=== PATIENT | male | born 1960 | race Caucasian/White ===

== ENCOUNTER 2020-10-05 08:15 | Inpatient (IN) | payer OTHER ==
[~2020-10-05] VITALS: Ht 188 cm; Wt 107.2 kg
[~2020-10-05 08:15] MED LIST: ALPR1 PO; CEPH500 PO; DIPATR PO; HYDACE5 PO; Norco 5-325 Ta1 EACH PO; PROM25 PO; QUET200 PO
[2020-10-05 08:30] LABS: Calcium, Ionized (POC) 1.23 mmol/L (1.10-1.46); Chloride (POC) 104 mmol/L (98-108); Creatinine (POC) 1.6 mg/dL (0.8-1.3); Glucose (ISTAT POC) 233 mg/dL (70-99); Hemoglobin (POC) 14.3 g/dL (13.5-17.5); Potassium (POC) 3.9 mmol/L (3.5-5.5); Sodium (POC) 136 mmol/L (135-148); Total CO2 (POC) 20 mmol/L (21-32)
[2020-10-05 08:34] LABS: PCO2 Arterial 46.2 mmHg (35-45); PO2 Arterial 361 mmHg (80-100)
[2020-10-05 08:35] LABS: pH Blood Arterial 7.09 (7.35-7.45)
[2020-10-05 08:37] LABS: BASOPHILS ABSOLUTE AUTO 0.08 K/mm3 (0.00-0.23); BASOPHILS PERCENT AUTO 1 % (0-2); EOSINOPHILS ABSOLUTE AUTO 0.19 K/mm3 (0.00-0.68); EOSINOPHILS PERCENT AUTO 2 % (0-6); Hemoglobin 13.4 g/dL (13.5-17.5); IMMATURE GRAN ABSOLUTE AUTO 0.57 K/mm3 (0.00-0.10); IMMATURE GRAN PERCENT AUTO 5 % (0-1); LYMPHOCYTES ABSOLUTE AUTO 4.37 K/mm3 (0.84-5.20); LYMPHOCYTES PERCENT AUTO 37 % (21-46); MONOCYTES ABSOLUTE AUTO 1.22 K/mm3 (0.16-1.47); MONOCYTES PERCENT AUTO 10 % (4-13); Mean Corpuscular HGB 31.2 pg (26.0-34.0); Mean Corpuscular HGB Conc 31.9 g/dL (31.5-36.5); Mean Corpuscular Volume 98 fL (80-100); Mean Platelet Volume 9.1 fL (9.1-12.4); NEUTROPHILS ABSOLUTE AUTO 5.39 K/mm3 (1.96-9.15); NEUTROPHILS PERCENT AUTO 46 % (41-73); NRBC ABSOLUTE 0.05 K/mm3 (0.00-0.02); NRBC Auto 0.4 /100 WBC (0.0-0.2); Platelet Count 253 K/mm3 (150-400); RDW Coefficient Variation 13.7 % (11.7-14.2); RDW Standard Deviation 49.6 fL (35.1-46.3); Red Blood Cell Count 4.29 M/mm3 (4.30-5.90); White Blood Cell Count 11.82 K/mm3 (4.00-11.30)
[2020-10-05 08:52] LABS: International Normalized Ratio 1.07; Prothrombin Time Results 11.5 Sec (9.7-11.5)
[2020-10-05 08:56] LABS: Source, Urine Clean Catch
[2020-10-05 09:03] LABS: Alanine Aminotransfer (ALT/SGP 57 U/L (12-78); Albumin, Blood 2.9 g/dL (3.4-5.0); Albumin/Globulin Ratio 0.7 (0.8-1.8); Alk Phos 93 U/L (50-136); Anion Gap 14 mmol/L (6-16); Aspartate Aminotrans (AST/SGOT 61 U/L (12-37); Bilirubin, Total 0.4 mg/dL (0.1-1.0); Blood Urea Nitrogen 8 mg/dL (8-24); Bun/Creatinine Ratio 5.6 (12.0-20.0); CO2, Blood 19 mmol/L (21-32); Calcium, Blood 8.3 mg/dL (8.5-10.1); Chloride, Blood 103 mmol/L (98-108); Creatinine, Blood 1.42 mg/dL (0.60-1.20); Globulin, Blood 4.4 g/dL (2.2-4.0); Glomerular Filtration Rate 54 (60-); Glucose, Blood 249 mg/dL (70-99); Potassium, Blood 3.8 mmol/L (3.5-5.5); Sodium, Blood 136 mmol/L (136-145); Total Protein, Blood 7.3 g/dL (6.4-8.2); Troponin I <0.015 ng/mL (0.000-0.040)
[2020-10-05 09:04] LABS: Appearance, Urine Cloudy (Clear); Bilirubin, Urine Neg (Neg); Blood, Urine 3+ (Neg); Color, Urine Yellow (P-Yellow); Glucose Qualitative, Urine 2+ (Neg); Ketones, Urine Neg (Neg); Leukocyte Esterase, Urine 1+ (Neg); Nitrite, Urine Neg (Neg); Protein, Urine 3+ (Neg); Urobilinogen, Urine NORM (Normal)
[2020-10-05 09:18] LABS: Spermatozoa Many /hpf
[2020-10-05 09:25] LABS: Bacteria Mod /hpf; Mucus Mod (0-Heavy); Renal Epithelial Few /hpf (0-Rare); Squamous Epithelial Cells Few /hpf (Few)
[2020-10-05 09:26] LABS: U Amphetamine Screen Not Detected; U Barbituate Screen Not Detected; U Benzodiazapine Screen DETECTED; U Buprenorphine Screen Not Detected; U Cannabinoids Screen DETECTED; U Cocaine Screen Not Detected; U Methadone Screen Not Detected; U Methamphetamine Screen Not Detected; U Opiates Screen Not Detected; U Oxycodone Screen Not Detected; U Phencyclidine Screen Not Detected; U Propoxyphene Screen Not Detected
[2020-10-05 10:38] LABS: PCO2 Arterial 39.2 mmHg (35-45); PO2 Arterial 80.3 mmHg (80-100); pH Blood Arterial 7.33 (7.35-7.45)
--- NOTE | 2020-10-05 11:30 | NUR ---
Received report from associate professor of management. Patient arrieved via gurney intubated with 8.0 ET and 26 at gums with vent settings 24/450/40/5 95%. He was a slide transfer and hooked up to monitor. He has tremmors, posturing and mild seizure looking activity. Medicated with Ativan and Fentanyl. No restraints as he shows no movement activity. Mother in ICU waiting room. He has IV to left wrist and IO to righ knee area. left wrist has Propofol at 20 mcg/kg/min.
--- NOTE | 2020-10-05 13:30 | NUR ---
Patient is now on spon. mode 14/5 and sats >90%. Dr Kenny palced cooling cath and am cooling to 96 degrees Mother in room and spoke with Dr Kenny. Started on Keppra for possible seizures and Nimbex for cooling and increased to 2.5 mcg/kg/min and BIS 50's, Propofol increased to 40 mcg/kg/min, Keppra infused.
--- NOTE | 2020-10-05 14:30 | NUR ---
Initial Pal Care referral received on pt's admission to ICU. RN let me know when mom was at the bedside and visit made to mom-Hermelinda. She is pt's NOK and surrogate decision maker in the absence of any AD. Her # is [phone]. Pt's sister, Karie Roa [phone] also lives locally and is close to her brother (13 months younger) per their mom. I introduced my self to mom and explained my purpose of supportive visit and to help answer questions for family as time goes on. She verbalizes understanding of plan of care to give pt some time, approx 24 hrs to reassess neuro/cognitive & cardiac function. Pt admitted with dx of cardiopulmonary arrest & acute renal failure. He was found down in the garage at home by Mom, Hermelinda, early this am. She does not know how long he was down. EMS called & resuscitation effort resulted in ROSC eventually, pt intubated in the ER. Cooling measures initiated. Pt is encephalopathic, posturing, pinpoint pupils & upward gaze per rippler's assessment earlier today. Pt has a PMH of HTN, preDM, new dx of hep C, 2PPD smoker, 6PPday drinker, anxiety increased recently with new dx of hep C per mom. Echo done today with EF of 40% noted. Time spent listening to mom and supporting her in her life review/son's life review. [employer] Developer had also visited mom earlier today and RN requested [employer] Developer Maco visit too. Mom is appropriately tearful. She states her son is a "good son" who has been helpful to her in the time he has been living in her home. Mom asked about what would happen after "wait and see" period and if additional family could visit. I told her staff and drs would keep her updated and if they felt a family conference would be helpful she would be able to have additional family present to listen, help and support her with decision making. Told her Pal Care will check in regularly. She declined offer for warm blanket in cool room or any beverages/snacks at this time. Encouraged hydration, rest, self care for mom who is understandable under duress and tearful. She expressed appreciation for visit.
[2020-10-05 16:46] LABS: Base Excess Venous -4.7 mmol/L; Bicarbonate Venous 21.2 mmol/L (24.0-30.0); PCO2 Venous 33.6 mmHg (38-42); PO2 Venous 79.3 mmHg (38-42); pH Blood Venous 7.39 (7.34-7.37)
[2020-10-05 17:03] LABS: Anion Gap 10 mmol/L (6-16); Blood Urea Nitrogen 11 mg/dL (8-24); Bun/Creatinine Ratio 10.7 (12.0-20.0); CO2, Blood 20 mmol/L (21-32); Calcium, Blood 8.1 mg/dL (8.5-10.1); Chloride, Blood 104 mmol/L (98-108); Creatinine, Blood 1.03 mg/dL (0.60-1.20); Glomerular Filtration Rate >60 (60-); Glucose, Blood 170 mg/dL (70-99); Potassium, Blood 4.4 mmol/L (3.5-5.5); Sodium, Blood 134 mmol/L (136-145)
--- NOTE | 2020-10-05 20:00 | NUR ---
ASSUMED CARE OF PT AT 1915. REPORT RECEIVED AT BEDSIDE. PT PRESENTS IN BED VENTED. PT ON PRECEDEX AT 1 MCG/KG AND PROPOFOL AT 35 MCG'S. PT MAINTAINS TRAIN OF FOUR. WITH NIMBEX AND BIS MONITOR REMAINS FOR THE MOST PART 40-60. WILL CONTINUE TO MONITOR. WILL REVIEW CHART AND PLAN OF CARE FOR THIS PT.
[2020-10-06 05:22] LABS: BASOPHILS ABSOLUTE AUTO 0.01 K/mm3 (0.00-0.23); BASOPHILS PERCENT AUTO 0 % (0-2); EOSINOPHILS ABSOLUTE AUTO 0.02 K/mm3 (0.00-0.68); EOSINOPHILS PERCENT AUTO 0 % (0-6); Hematocrit 38.8 % (37.0-53.0); Hemoglobin 12.8 g/dL (13.5-17.5); IMMATURE GRAN ABSOLUTE AUTO 0.05 K/mm3 (0.00-0.10); IMMATURE GRAN PERCENT AUTO 0 % (0-1); LYMPHOCYTES ABSOLUTE AUTO 1.01 K/mm3 (0.84-5.20); LYMPHOCYTES PERCENT AUTO 9 % (21-46); MONOCYTES ABSOLUTE AUTO 0.89 K/mm3 (0.16-1.47); MONOCYTES PERCENT AUTO 8 % (4-13); Mean Corpuscular HGB 30.2 pg (26.0-34.0); Mean Platelet Volume 8.8 fL (9.1-12.4); NEUTROPHILS ABSOLUTE AUTO 9.19 K/mm3 (1.96-9.15); NEUTROPHILS PERCENT AUTO 82 % (41-73); Platelet Count 183 K/mm3 (150-400); RDW Coefficient Variation 13.3 % (11.7-14.2); RDW Standard Deviation 44.7 fL (35.1-46.3); Red Blood Cell Count 4.24 M/mm3 (4.30-5.90); White Blood Cell Count 11.17 K/mm3 (4.00-11.30)
[2020-10-06 05:40] LABS: Mean Corpuscular Volume 92 fL (80-100)
[2020-10-06 05:46] LABS: Alanine Aminotransfer (ALT/SGP 51 U/L (12-78); Albumin, Blood 2.6 g/dL (3.4-5.0); Albumin/Globulin Ratio 0.6 (0.8-1.8); Alk Phos 73 U/L (50-136); Anion Gap 7 mmol/L (6-16); Aspartate Aminotrans (AST/SGOT 65 U/L (12-37); Bilirubin, Total 0.7 mg/dL (0.1-1.0); Blood Urea Nitrogen 9 mg/dL (8-24); Bun/Creatinine Ratio 9.9 (12.0-20.0); CO2, Blood 21 mmol/L (21-32); Calcium, Blood 7.5 mg/dL (8.5-10.1); Chloride, Blood 106 mmol/L (98-108); Creatinine, Blood 0.91 mg/dL (0.60-1.20); Globulin, Blood 4.1 g/dL (2.2-4.0); Glomerular Filtration Rate >60 (60-); Glucose, Blood 113 mg/dL (70-99); Potassium, Blood 4.2 mmol/L (3.5-5.5); Sodium, Blood 134 mmol/L (136-145); Total Protein, Blood 6.7 g/dL (6.4-8.2)
--- NOTE | 2020-10-06 06:23 | NUR ---
PT CURRENTLY WITH NIMBEX DRIP AT 1.0 MCG/KG/MIN. PROPOFOL AT 50 MCG'S/KG/MIN THIS MAINTAINS BIS AT OR NEAR 60. GOAL BEING 40-60. PT CONTINUES WITH VERY COARSE LUNG SOUNDS. HAVE SUTIONED PT WITH RETURN OF YELLOW/BORGES COLORED SECRETIONS. CONTINUES IN NORMAL SINUS RHYTHM. NO ECTOPY TO NOTE. NO ST CHANGES. COOLING MEASURES CONTINUE. GOAL 96.0 F. WILL CONTINUE TO MONITOR PT, AND WILL REPORT OFF TO ONCOMING RN.
--- NOTE | 2020-10-06 07:12 | NUR ---
Received report from Victoriano IBANEZ. Patient intubated, sedated and paralyzed. He has 8.0 ET and 26 cm at cums, vent setting AC 24, TV 400, FiO2 25%, PEEP 5.0 sats 98%. BIS 63, TO4 4/3 dial 7. He has Right groin cooling cath target temp 96 and is infusing Propofol 50 mcg/kg/min, Nimbex 1 mcg/kg/minm NS at 100 ml/hr. He has 16Fr Temp tomas draing light chayito urine.
--- NOTE | 2020-10-06 09:30 | NUR ---
Placed lift sheet and lifted patient zero bed and re-weighed patient. No changes to gtt's or vent settings. Sister called and gave update.
--- NOTE | 2020-10-06 12:00 | NUR ---
Patients Nimbex off at 1100 and warming started at 1130. When Nimbex wore off he started to have seizure looking tremors and possible posturing to extremities. Dr Kenny had me give Ativan 4mg three times and reduces movements. at 1145 started Versed gtt at 10mg/hr and titrate to effect. He still has leg movement twiting in and eye have minmal fluttering.
[2020-10-06 12:05] LABS: International Normalized Ratio 1.05; Prothrombin Time Results 11.3 Sec (9.7-11.5)
--- NOTE | 2020-10-06 12:07 | NUR ---
ADMIT: 10/05/20 DX: Cardiac Arrest CC: Lino Ricardo RESIDENCE: Home with mother - [address] [place]. [id number] CAREGIVER: Mother Karie Rader , sister Karie Roa Update 10/06/20: Cardiology involved in patient's care. Following notes within chart and will continue to discuss patient's care with Dr. Soto daily. Will speak with family as needed.
--- NOTE | 2020-10-06 14:00 | NUR ---
monogram technician here setting up for stat EEG. Versed gtt remains at 10 mg/hr and Propofol at 50 mcg/kg/min. He current continues with fine movements with seizure like activity. Pupils reactive to light. No purposeful movement since Nimbex turned off
--- NOTE | 2020-10-06 16:10 | NUR ---
EEG is done and Dr Jordan called with report and notified Dr Kenny. Increased versed gtt to 12 mg/hr for continued visual activity. Vent settings PC /10/09 and sats 100%. Cpoius amouts of oral secretions with constant suctioning. Propofol at 50 mcg/kg/min, NS at 100 ml/hr.
--- NOTE | 2020-10-06 18:31 | NUR ---
Family will be in after 1000 to say there good byes. Head CT in am. He is on 50 mcg/kg/min Propofol, Versed 12 mg/hr and NS at 100 ml/hr. VSS See EMR. Urine dark brown with sediment. Copius amounts of oral secretions with blood clots.
--- NOTE | 2020-10-06 18:55 | NUR ---
pt on vent family is having a meeting on withdrawing care. pt mother is sobbing she is very distrught. She had many questions on how to manage his affairs if he passes away. gave her some inormation and will assist her with a plan.
--- NOTE | 2020-10-06 20:00 | NUR ---
ASSUMED CARE OF PT AT 1915. REPORT RECEIVED AT BEDSIDE. PT PRESENTS IN BED. VENTED. PC-AC 24, 35 PERCENT FIO2, PEEP 5. PROPOFOL AT 50 MCG/KG/MIN AND VESED DRIP AT 12 MG PER HOUR. DOES HAVE TREMOR TYPE MOVEMENTS. UNRESPONSIVE. WILL REVIEW CHART AND PLAN OF CARE FOR THIS PT.
--- NOTE | 2020-10-07 00:18 | NUR ---
PHONE CALL RECEIVED FROM DONOR TEAM. UPDATE GIVEN. THEY WILL CHECK BACK IN AM. OF NOTE: PT HAD IO IV IN RIGHT LOWER EXTREMITY THAT WAS REMOVED BY THIS RN IN RENTAL MANAGEMENT TRAINEE. MILD BLEEDING NOTED. BANDAGE APPLIED. PT TOLERATES WELL. PT CONTINUES TO HAVE TREMOR - LIKE MOVEMENTS. COOLING MEASURE WITH 98.6 DEGREE CONSTANT. WILL CONTINUE TO MONITOR PT.
[2020-10-07 04:25] LABS: Base Excess Venous -2.4 mmol/L; Bicarbonate Venous 22.7 mmol/L (24.0-30.0); PCO2 Venous 32.6 mmHg (38-42); PO2 Venous 48.1 mmHg (38-42); pH Blood Venous 7.43 (7.34-7.37)
[2020-10-07 04:34] LABS: BASOPHILS ABSOLUTE AUTO 0.02 K/mm3 (0.00-0.23); BASOPHILS PERCENT AUTO 0 % (0-2); EOSINOPHILS ABSOLUTE AUTO 0.08 K/mm3 (0.00-0.68); EOSINOPHILS PERCENT AUTO 1 % (0-6); Hemoglobin 11.4 g/dL (13.5-17.5); IMMATURE GRAN ABSOLUTE AUTO 0.07 K/mm3 (0.00-0.10); IMMATURE GRAN PERCENT AUTO 1 % (0-1); LYMPHOCYTES ABSOLUTE AUTO 1.16 K/mm3 (0.84-5.20); LYMPHOCYTES PERCENT AUTO 11 % (21-46); MONOCYTES ABSOLUTE AUTO 0.91 K/mm3 (0.16-1.47); MONOCYTES PERCENT AUTO 8 % (4-13); Mean Corpuscular HGB 30.6 pg (26.0-34.0); Mean Corpuscular HGB Conc 33.5 g/dL (31.5-36.5); Mean Corpuscular Volume 91 fL (80-100); NEUTROPHILS ABSOLUTE AUTO 8.81 K/mm3 (1.96-9.15); NEUTROPHILS PERCENT AUTO 80 % (41-73); Platelet Count 187 K/mm3 (150-400); RDW Standard Deviation 47.6 fL (35.1-46.3); Red Blood Cell Count 3.73 M/mm3 (4.30-5.90); White Blood Cell Count 11.05 K/mm3 (4.00-11.30)
[2020-10-07 04:53] LABS: Anion Gap 7 mmol/L (6-16); Blood Urea Nitrogen 8 mg/dL (8-24); Bun/Creatinine Ratio 11.2 (12.0-20.0); CO2, Blood 21 mmol/L (21-32); Calcium, Blood 7.4 mg/dL (8.5-10.1); Chloride, Blood 109 mmol/L (98-108); Creatinine, Blood 0.72 mg/dL (0.60-1.20); Glomerular Filtration Rate >60 (60-); Glucose, Blood 103 mg/dL (70-99); Sodium, Blood 137 mmol/L (136-145)
--- NOTE | 2020-10-07 06:17 | NUR ---
PT CONTINUES ON VERSED DRIP AT 12 MG/HOUR, PROPOFOL AT 50 MCG'S/KG/HOUR. NO CHANGES IN NEURO STATUS. DOES HAVE PUPIL THAT ARE REACTIVE TO LIGHT. TWITCH/TREMOR LIKE MOVEMENTS REMAIN. HAS HAD COPIOUS ORAL SECRETIONS THIS NIGHT. DOES HAVE SOME BLOOD TINGED SECRETIONS WITH DEEP ORAL SUCTIONING. WILL CONTINUE TO MONITOR PT, AND WILL REPORT OFF TO ONCOMING RN.
--- NOTE | 2020-10-07 07:30 | NUR ---
ASSUMED CARE FROM MARCELLE BOWLES. PT ON VENTILATOR PC //%. PT OCC BREATHES OVER VENTILATOR, AMANUEL, PT DROOLING, COUGH OCC, ABDOMEN SOFT, HYPOACTIVE BOWEL TONES, DARBY TO GRAVITY DRAINAGE WITH SCANT RETURN, RIGHT GROIN SITE WITH COOLING MACHINE AT NORMOTEMP. RIGHT FOOT COOL, LEFT FOOT WARM, PULSES PALPAPLE, RIGHT FOOT PULSES BY DOPPLAR. HEPARIN INFUSING AT 13U/HR, MIDAZOLAM @ 12MG/HR, PROPOFOL @ 50MCG/KG/HR, NS @ 100ML/HR. PT WITH NO RESPONSES TO TOUCH, PAINFUL STIMULI OR VERBAL. PT WITH OCC EYE TWITCH. NO OTHER RESPONSES.
--- NOTE | 2020-10-07 09:45 | NUR ---
FAMILY IN TO SEE PT MOM, SISTER AND NIECE.
--- NOTE | 2020-10-07 11:00 | NUR ---
TO CT SCAN, PT TOLERATED OK, SATS DROPPED, PROPOFOL INCREASED FOR PAROXYSMAL BREATHING. PT SETTLED AND RETURNED TO PREVIOUS SETTINGS.
--- NOTE | 2020-10-07 11:30 | NUR ---
CHILDREN IN TO SEE PT. NO QUESTIONS ASKED. PT CONTINUES, NO CHANGES.
--- NOTE | 2020-10-07 13:15 | NUR ---
HEPARIN GTT INCREASED PER PHARMACY. PT CONTINUES WITH DROOLING, EVEN RESPIRATIONS, NO RESPONSES TO STIMULI. FAMILY HAS BEEN FILTERING IN AND OUT, MOTHER SPOKE WITH ABOUT CURRENT SITUATION. MOTHER SHARES THAT FAMILY WILL PROBABLY ALL BE IN AGREEMENT TO LET HIM GO, THAT HE WOULD NOT LIKE TO BE LIKE THIS. PALLIATIVE CARE AND PASTORAL CARE HAVE BEEN MEETING WITH FAMILY.
--- NOTE | 2020-10-07 13:30 | NUR ---
SUMMARY-PT'S RIGHT GROIN SITE DRESSING NEEDING CHANGED. WHILE CLEANING THE SITE TO REPLACE THE DRESSING PT BEGAN URINATING AROUND THE DARBY CATHETER. COPIOUS AMOUNTS OF CLEAR YELLOW URINE. ATTEMPT TO IRRIGATE CATHETER UNSUCCESSFUL, CATH REPLACED, DRESSING CHANGED, PT TURNED AND CLEANED. THEN NOTED TO HAVE FRENCH BLEEDING FROM THE CATHETER. NOTIFIED. HEPARIN TURNED OFF, NOTIFIED, HEPARIN DC'D. CONTINUE TO IRRIGATE THE CATHETER LINE TO KEEP IT FLOWING.
--- NOTE | 2020-10-07 13:53 | NUR ---
Spiritual care visit conducted. Patient's family are gathered around patient and they share about the struggles dealing with the suddenness and complexity of patient's medical issues and how that is effecting them emotionally. They also talk about patient's [employer] harrison and that he has been baptized. I provide therapeutic listening and prayer. I also meet with patient's son, Francisco and he talks about what a strong man and influence he has been. I provide a calming presence as he stands quietly at patient's side. Spiritual care will remain available.
--- NOTE | 2020-10-07 15:28 | NUR ---
plan i sto caontact fianl dischareg and extubate and comfort
[2020-10-07] MEDS ORDERED: ALPR1 PO (15:46)
[2020-10-07] MEDS ORDERED: LIPITOR 40 MG PO (15:47)
[2020-10-07] MEDS ORDERED: ZESTRIL40 M1 PO (15:48)
[2020-10-07] MEDS ORDERED: QUET200 PO (15:49)
--- NOTE | 2020-10-07 16:04 | NUR ---
PT.SUMMARY 1500: PT'S FAMILY DECIDED TO WITHDRAW CARE, MOTHER STATED THAT HER LAST CONVERSATION WITH HER SON, HE STATED THAT HE DID NOT WANT TO BE AN ORGAN DONOR. PT IS A REGISTERED ORGAN DONOR, LISA MONTELONGO,AUTO REPAIR SHOP MANAGER NURSE, SPOKE WITH PNTB TO DISCUSS CARE, THEY SAID TO GO AHEAD. ORDERS RECEIVED FROM DR. WEAVER, PT'S MIDAZOLAM DRIP INCREASED TO 15MG/HR, PROPOFOL DECREASED TO 30MG/KG/MIN. TERENCE FROM R/T WITHDREW ETT AND OG TUBE AT 1536, 1538 ATIVAN 1MG GIVEN. 1544-ROXINOL GIVEN, 1545 FAMILY IN TO ROOM. 1555-MORPHINE 4MG IV FOR BREATHING/COMFORT.
--- NOTE | 2020-10-07 16:06 | NUR ---
care with drawn and pt put on comfort family at bedside.
--- NOTE | 2020-10-07 17:07 | NUR ---
Update 10/07/20 1704: Pt. extubated to comfort care. Pt. will donate organs. Palliative care is involved in providing support for the family. Will update chart as indicated. Update 10/07/20: Rewarmed yesterday and had EEG which was concerning for severe diffuse cerebralinsult, consistent with persistent vegetative state. Utilities Operator team andpalliative discussed findings and poor prognosis with family. They areconsidering withdrawing care and pursuing organ donation. Nursing reportsexcessive secretions today, little to no urine output
--- NOTE | 2020-10-07 18:41 | NUR ---
PT CONTINUES WITH SONOROUS RESPIRATIONS, GURGLING AT TIMES, PT'S MOM, BROTHER AND NIECE IN THE ROOM. PT IS SPOT CHECKED AND SATS ARE HOVERING AROUND 80, HIS DARBY CONTINUES TO DRAIN RED TINGED. MIDAZOLAM GTT CONTINUES AT 15MG/HR. MEDICATED WITH MORPHINE AND ROXINOL DIRECTED. PT TURNED TO LEFT SIDE AND POSITIONED WITH PILLOWS.
--- NOTE | 2020-10-07 19:44 | NUR ---
ASSUMED CARE OF PT AT 1915. PT CURRENTLY CARE AND COMFORT STATUS. FAMILY AT BEDSIDE. HAVE MEDICATED PT WITH 20MG ROXANOL FOR COMFORT. TEACHING DONE WITH FAMILY ON PLAN OF CARE FOR PT. WILL REVIEW CHART AND PLAN OF CARE FOR PT.
--- NOTE | 2020-10-07 22:43 | NUR ---
COMFORT: PATIENT IS DISPLAYING AIR HUNGER. RESPIRATIONS ARE 22. 20 MG OF ROXANOL IS GIVEN.
--- NOTE | 2020-10-08 00:03 | NUR ---
COMFORT CARE: PATIENT CONTINUES TO HAVE HIGH RESPIRATORY RATE, 25. ATIVAN 2MG IS GIVEN FOR AIR HUNGER/DYSPNEA AND TYLENOL SUPP IS GIVEN FOR TEMP. DARBY IS DRAINING FRENCH BLOOD.
--- NOTE | 2020-10-08 00:25 | NUR ---
COMFORT: PATIENT CONTIUES TO DISPLAY AIR HUNGER. RESPIRATIONS ARE 24. ROXANOL IS GIVEN. SKIN IS COOLER AFTER TYLENOL SUPP.
--- NOTE | 2020-10-08 01:29 | NUR ---
COMFORT: PATIENT HAS HAD GOOD EFFECT FROM ROXANOL, RESPIRATIONS ARE AT 20AND EASY. FAMILY IS AT BEDSIDE.
--- NOTE | 2020-10-08 02:33 | NUR ---
/COMFORT: DARBY IS NOT DRAINING, FRENCH BLOOD IS IN THE TUBBING AND BAG. FLUSHING OF CATH IS ATTEMPTED BUT UNSUCCESSFUL. CATH CARE IS DONE, BALLON IS DEFLATED AND CATHETER IS ADVANCED. 350 MLS OF SONU URINE IS EMPTIED FROM DARBY. RESPIRATIONS ARE 28 AND CHEST IS HEAVING, 2 MG OF ATIVAN IS GIVEN.
--- NOTE | 2020-10-08 05:54 | NUR ---
SHIFT SUMMARY: PATIENT COMNTINUES TO HAVE RESPIRATIONS IN THE MID TO HIGH 30'S. ROXANOL 20MG SL AND ATIVAN 2MG IV HAVE BEEN ALTERNATED WITH FAIR EFFECT. SECRETIONS ARE LOOSE AND DEEP. UNABLE TO REACH SECRETIONS WITH ORAL SUCTIONING. NASAL SUCTIONING CAUSES DISTRESS IN PATIENT. SCOPOLOMINE PATCH IS BEHIND R EAR AND ATROPINE GTT HAVE BEEN GIVEN TWICE. PER DR PIÑA IS IS OK TO RUN THE VERSED GTT @ 15 MG/HR. THIS IS RATE PATIENT WAS TRANSFERED OUT OF ICU ON. TO PREVENT SEIZURES AND FOR OVERALL COMFORT.
--- NOTE | 2020-10-08 10:59 | NUR ---
COMFORT CARE RECEIVED PATIENT FROM NOC RN. AIR HUNGER AND HIGH RESPIRATION RATE NOTED. PT UNABLE TO BE AROUSED. WILL COME BACK TO GIVE MEDICATIONS AND ROUND ON PT.
--- NOTE | 2020-10-08 11:02 | NUR ---
COMFORT CARE PT MEDICATED PER EMR FOR AIR HUNGER AND SECRETIONS. TAKEN OFF O2 PER REQUEST OF THE FAMILY AND RT. PT LOOKS MORE COMFORTABLE THAN EARLIER. RESTING COMFORTABLY IN BED.
--- NOTE | 2020-10-08 11:51 | NUR ---
Comfort Care Visit Pt resting in bed and is non responsive. Cheynne Stoke breathing noted. Family at bedside. Engaged in therapeutic listening and answered questions. Family expresses appreciation of visit and report no concerns at this time. Spoke with Primary RN Jennifer, discussed case, and reviewed comfort medications. Palliative Care will remain available.
--- NOTE | 2020-10-08 17:38 | NUR ---
COMFORT CARE PT FAMILY AT BEDSIDE. OFFERED TO REPOSITION PATIENT AND PERFORM OTHER ASPECTS OF PERSONAL CARE. FAMILY FEELS THAT THE PATIENT LOOKS COMFORTABLE AND WOULD RATHER WE LET HIM REST. THE PATIENT LOOKS COMFORTABLE AND RESTING IN BED.
--- NOTE | 2020-10-08 17:58 | NUR ---
COMFORT CARE NEW BAG OF VERSED HUNG AT 1520 AND MEDICATED PER EMR. PT RESPIRATORY RATE SEEMS TO BE DOING BETTER AND HE LOOKS MORE COMFORTABLE.
--- NOTE | 2020-10-08 18:25 | NUR ---
PT PASSED AT 1820.
--- NOTE | 2020-10-08 18:26 | NUR ---
PT PASSED. DAUGHTER GRIEVING IN ROOM.
--- NOTE | 2020-10-08 18:49 | NUR ---
SHIFT SUMMARY PT PASSED AT 1820. HE LOOKED VERY COMFORTABLE AND WAS TREATED PER EMR AND PER FAMILY REQUEST. SEE COMFORT CARE NOTES. FAMILY WOULD LIKE TO USE [employer] FOR THEIR MORTUARY. MOM AND DAUGHTER IN ROOM. PATIENT LAID FLAT AND MADE COMFORTABLE. NOTIFIED BY TRANSMISSION WORKER.
== END 2020-10-08 18:20 ==
LOC: ER 08:15 → MEDS 09:46 → ICUW 09:46 → MEDS 10-07 22:28
PROVIDERS: Emergency Medicine; Internal Medicine Pulmonary Disease; Pharmacist; ADMIT Family Medicine
PROC: 0BH18EZ Insertion of Endotracheal Airway into Trachea, Via Natural or Artificial Opening Endoscopic (ICD-10-PCS; principal; 2020-10-05)
PROC: 5A1945Z Respiratory Ventilation, 24-96 Consecutive Hours (ICD-10-PCS; 2020-10-05)
PROC: 06HM33Z Insertion of Infusion Device into Right Femoral Vein, Percutaneous Approach (ICD-10-PCS; 2020-10-06)
DX: I49.01 Ventricular fibrillation (principal); I21.4 Non-ST elevation (NSTEMI) myocardial infarction; J96.90 Respiratory failure, unspecified, unspecified whether with hypoxia or hypercapnia; E87.2 Acidosis; N17.9 Acute kidney failure, unspecified; G93.1 Anoxic brain damage, not elsewhere classified; Z51.5 Encounter for palliative care; F41.9 Anxiety disorder, unspecified; R73.03 Prediabetes; I10 Essential (primary) hypertension; I46.2 Cardiac arrest due to underlying cardiac condition; F17.210 Nicotine dependence, cigarettes, uncomplicated; E66.09 Other obesity due to excess calories; B18.2 Chronic viral hepatitis C; Z68.30 Body mass index [BMI] 30.0-30.9, adult
CPT/HCPCS: 31500; 36556; 36600; 51702; 70450; 71045; 80047; 80048; 80053; 81001; 82803; 83605; 83880; 84484; 85014; 85025; 85610; 85730; 87086; 93005; 93010; 93306; 94002; 94003; 94640; 94760; 95819; 96361; 96374; 99285-25; A9270; J1170; J1644; J1953; J2060; J2250; J2270; J2704; J3010; J7030; J7050